=== PATIENT | male | born 1980 | race Caucasian/White ===

== ENCOUNTER 2017-06-25 17:57 | Inpatient (IN) | payer BC ==
[~2017-06-25] VITALS: Ht 177.8 cm; Wt 74.4 kg
[2017-06-25 19:08] VITALS: BP_SYST 134
[2017-06-25 19:16] LABS: BASOPHILS # (AUTO) 0.2 K/uL (0.0-0.2); BASOPHILS % (AUTO) 1.4 % (0.0-2.0); EOSINOPHILS % (AUTO) 0.1 % (0.0-4.0); HEMATOCRIT 39.6 % (36-54); HEMOGLOBIN 13.1 g/dL (14.0-18.0); LYMPHOCYTES # (AUTO) 1.5 K/uL (1.0-5.5); LYMPHOCYTES % (AUTO) 11.8 % (20.5-51.5); MEAN CORPUSCULAR HEMOGLOBIN 31 pg (27-31); MEAN CORPUSCULAR HGB CONC 33 % (32-36); MEAN CORPUSCULAR VOLUME 93 fL (79.0-98.0); MONOCYTES # (AUTO) 1.4 K/uL (0.0-1.0); MONOCYTES % (AUTO) 10.5 % (1.7-9.3); NEUTROPHILS # (AUTO) 9.9 K/uL (1.8-7.7); NEUTROPHILS % (AUTO) 76.2 % (40.0-70.0); PLATELET COUNT (AUTO) 272 K/uL (130-430); RED BLOOD CELL COUNT(AUTO) 4.26 MIL/uL (4.2-6.2); RED CELL DISTRIBUTION WIDTH 11.9 % (9.0-15.0)
[2017-06-25 19:30] LABS: CALCIUM 8.6 mg/dL (8.4-11.0); CREATININE 1.01 mg/dL (0.55-1.30); POTASSIUM 3.3 mmol/L (3.5-5.1)
[2017-06-25 19:34] LABS: ALBUMIN 3.2 g/dL (3.4-4.8)
[2017-06-25] MEDS ORDERED: NACL 0.9% 1,000 ML IV SCH (19:59)
[2017-06-25] MEDS ORDERED: CLINDAMYCIN 900 mg/50mL D5W 50 ML IV ONE (20:00)
[2017-06-25] MEDS ORDERED: POTASSIUM CHLORIDE 20 MEQ TAB.PRT.SR PO ONE (20:15)
[2017-06-25 22:05] VITALS: BP_SYST 131
[2017-06-25 22:31] VITALS: BP_SYST 131
[2017-06-25] MEDS ORDERED: ONDANSETRON HCL 4 MG/2 ML VIAL IVP PRN ×2 (23:15)
[2017-06-25] MEDS ORDERED: ACETAMINOPHEN 325 MG TABLET PO PRN (23:15)
[2017-06-25] MEDS ORDERED: HYDROcodone/ACETAMIN 5-325 MG TAB (NORCO/ VICODIN) PO PRN ×2 (23:30)
[2017-06-26] MEDS ORDERED: CLINDAMYCIN 600 mg/50mL D5W 50 ML IV ONE ×2 (00:27→06:04)
[2017-06-26] MEDS ORDERED: CEFAZOLIN 2 GM IVPB PREMIX 50 ML IV ONE ×2 (00:27→06:04)
[2017-06-26] MEDS: ceFAZolin SODIUM 2 GM in D5W 100 ML IV SCH ×3 (00:30→13:57)
[2017-06-26] MEDS: CLINDAMYCIN 600 mg/50mL D5W 50 ML IV SCH ×4 (01:30→17:35)
[2017-06-26 08:00] VITALS: BP_SYST 119
[2017-06-26] MEDS ORDERED: LACTOBACILLUS RHAMNOSUS GG 1 CAP CAPSULE PO SCH (09:00)
[2017-06-26 11:19] VITALS: BP_SYST 118
[2017-06-26 16:05] VITALS: BP_SYST 121
[2017-06-26] MEDS ORDERED: ENOXAPARIN SODIUM 40 MG/0.4 ML SYRINGE SUBCUT SCH ×2 (21:00→23:30)
== END 2017-06-26 22:47 | disposition short-term general hospital (02) | DRG 872 ==
LOC: SED 17:57 → SMU 21:44
PROVIDERS: ADMIT Internal Medicine; ATTEND Internal Medicine
DX: A41.9 Sepsis, unspecified organism (principal); L02.415 Cutaneous abscess of right lower limb; L03.115 Cellulitis of right lower limb; Z60.2 Problems related to living alone
CPT/HCPCS: 36415; 73564; 80053; 83605; 85025; 87040-TC; 87070-TC; 87186-TC; 93971; 96365; 99285; J0690; J3490; J7030; J7040; J7060

== ENCOUNTER 2017-08-05 11:03 | Inpatient (IN) | payer SELFPAY ==
[~2017-08-05] VITALS: Ht 172.7 cm; Wt 71.7 kg
[2017-08-05 11:08] VITALS: BP_SYST 144
[2017-08-05] MEDS ORDERED: cefTRIAXone 1 GM in D5W 50 ML IV ONE (11:30)
[2017-08-05] MEDS ORDERED: CLINDAMYCIN 600 mg/50mL D5W 50 ML IV ONE (11:30)
[2017-08-05] MEDS ORDERED: cefTRIAXone 1 GM VIAL ONE (11:38)
[2017-08-05 11:57] LABS: BASOPHILS % (AUTO) 0.6 % (0.0-2.0); EOSINOPHILS # (AUTO) 1.1 K/uL (0.0-0.4); EOSINOPHILS % (AUTO) 13.9 % (0.0-4.0); HEMATOCRIT 41.3 % (36-54); HEMOGLOBIN 13.7 g/dL (14.0-18.0); LYMPHOCYTES # (AUTO) 2.3 K/uL (1.0-5.5); LYMPHOCYTES % (AUTO) 29.4 % (20.5-51.5); MEAN CORPUSCULAR HEMOGLOBIN 31 pg (27-31); MEAN CORPUSCULAR HGB CONC 33 % (32-36); MEAN CORPUSCULAR VOLUME 93 fL (79.0-98.0); MONOCYTES # (AUTO) 0.5 K/uL (0.0-1.0); MONOCYTES % (AUTO) 6.4 % (1.7-9.3); NEUTROPHILS # (AUTO) 3.8 K/uL (1.8-7.7); NEUTROPHILS % (AUTO) 49.7 % (40.0-70.0); PLATELET COUNT (AUTO) 279 K/uL (130-430); RED BLOOD CELL COUNT(AUTO) 4.46 MIL/uL (4.2-6.2); RED CELL DISTRIBUTION WIDTH 13.1 % (9.0-15.0); WHITE BLOOD COUNT (AUTO) 7.8 K/uL (4.8-10.8)
[2017-08-05 12:02] LABS: CALCIUM 9.1 mg/dL (8.4-11.0); CREATININE 1.2 mg/dL (0.55-1.30); POTASSIUM 4.5 mmol/L (3.5-5.1)
[2017-08-05 12:05] LABS: PROTHROMBIN TIME 9.9 SECS (9.5-12.5)
[2017-08-05 12:07] LABS: C-REACTIVE PROTEIN QUANT 0.7 mg/dL (0-0.5); TOTAL BILIRUBIN 0.2 mg/dL (0.0-1.0)
[2017-08-05 14:17] VITALS: BP_SYST 117
[2017-08-05] MEDS ORDERED: FLU VACC QS 2017-18(36MOS+)/PF 0.5 ML/SYR SYRINGE I.M. PRN (14:45)
[2017-08-05] MEDS ORDERED: ACETAMINOPHEN 325 MG TABLET PO PRN (15:00)
[2017-08-05] MEDS ORDERED: HYDROcodone/ACETAMIN 5-325 MG TAB (NORCO/ VICODIN) PO PRN (17:30)
[2017-08-05] MEDS: POTASSIUM CHLORIDE 10 MEQ in NACL 0.9% 1,000 ML IV SCH (18:28)
[2017-08-05] MEDS: CEFAZOLIN 2 GM IVPB PREMIX 50 ML IV SCH ×2 (18:32→21:27)
[2017-08-05] MEDS: CLINDAMYCIN 600 mg/50mL D5W 50 ML IV SCH ×2 (18:59→23:52)
[2017-08-05 20:20] VITALS: BP_SYST 126
[2017-08-05 23:18] VITALS: BP_SYST 128
[2017-08-06] MEDS: CLINDAMYCIN 600 mg/50mL D5W 50 ML IV SCH (05:46)
[2017-08-06 06:36] VITALS: BP_SYST 122
[2017-08-06] MEDS: POTASSIUM CHLORIDE 10 MEQ in NACL 0.9% 1,000 ML IV SCH (06:43)
[2017-08-06] MEDS: CEFAZOLIN 2 GM IVPB PREMIX 50 ML IV SCH ×2 (06:45→06:54)
[2017-08-06 06:55] LABS: BASOPHILS % (AUTO) 0.4 % (0.0-2.0); EOSINOPHILS # (AUTO) 1.3 K/uL (0.0-0.4); EOSINOPHILS % (AUTO) 17.4 % (0.0-4.0); HEMOGLOBIN 14.3 g/dL (14.0-18.0); LYMPHOCYTES # (AUTO) 3.1 K/uL (1.0-5.5); LYMPHOCYTES % (AUTO) 42.9 % (20.5-51.5); MEAN CORPUSCULAR HEMOGLOBIN 32 pg (27-31); MEAN CORPUSCULAR HGB CONC 34 % (32-36); MEAN CORPUSCULAR VOLUME 93 fL (79.0-98.0); MONOCYTES # (AUTO) 0.6 K/uL (0.0-1.0); MONOCYTES % (AUTO) 8.9 % (1.7-9.3); NEUTROPHILS # (AUTO) 2.2 K/uL (1.8-7.7); NEUTROPHILS % (AUTO) 30.4 % (40.0-70.0); PLATELET COUNT (AUTO) 285 K/uL (130-430); RED BLOOD CELL COUNT(AUTO) 4.53 MIL/uL (4.2-6.2); RED CELL DISTRIBUTION WIDTH 13.1 % (9.0-15.0); WHITE BLOOD COUNT (AUTO) 7.2 K/uL (4.8-10.8)
[2017-08-06] MEDS ORDERED: DIPHENHYDRAMINE HCL 50 MG CAPSULE PO ONE (07:00)
[2017-08-06 07:04] LABS: ALBUMIN 2.5 g/dL (3.4-4.8); CALCIUM 8.6 mg/dL (8.4-11.0); CREATININE 0.79 mg/dL (0.55-1.30); POTASSIUM 4.2 mmol/L (3.5-5.1); TOTAL BILIRUBIN 0.1 mg/dL (0.0-1.0)
[2017-08-06 08:00] VITALS: BP_SYST 124
[2017-08-06] MEDS: FAMOTIDINE 20 MG TABLET PO SCH (09:00)
[2017-08-06 12:00] VITALS: BP_SYST 115
[2017-08-06] MEDS: LINEZOLID 300 ML IV SCH ×2 (12:05→21:52)
[2017-08-06 16:00] VITALS: BP_SYST 124
[2017-08-06 20:27] VITALS: BP_SYST 116
[2017-08-06] MEDS: DIPHENHYDRAMINE HCL 25 MG CAPSULE PO PRN (22:26)
[2017-08-07 01:55] VITALS: BP_SYST 114
[2017-08-07 08:00] VITALS: BP_SYST 124
[2017-08-07] MEDS: FAMOTIDINE 20 MG TABLET PO SCH (08:48)
[2017-08-07] MEDS: LINEZOLID 300 ML IV SCH (08:49)
[2017-08-07] MEDS: DIPHENHYDRAMINE HCL 25 MG CAPSULE PO PRN (08:50)
[2017-08-07 12:36] VITALS: BP_SYST 128
[2017-08-07 15:03] VITALS: BP_SYST 128
[2017-08-07] MEDS ORDERED: DOXY100T2 PO (15:03)
== END 2017-08-07 15:50 | disposition home or self-care (01) | DRG 603 ==
LOC: SED 11:03 → SMU 13:44
PROVIDERS: ADMIT Internal Medicine; ATTEND Internal Medicine
DX: L03.115 Cellulitis of right lower limb (principal); E44.0 Moderate protein-calorie malnutrition; B18.1 Chronic viral hepatitis B without delta-agent; F12.90 Cannabis use, unspecified, uncomplicated; R73.9 Hyperglycemia, unspecified; I89.0 Lymphedema, not elsewhere classified; J45.909 Unspecified asthma, uncomplicated; Z88.1 Allergy status to other antibiotic agents; Z68.24 Body mass index [BMI] 24.0-24.9, adult
CPT/HCPCS: 36415; 73560-TC; 80053; 83605; 85025; 85610-TC; 85730-TC; 86140; 87040-TC; 93971; 96365; 96367; 99285; J0690; J0696; J2020; J3480; J3490; J7030; J7060; Q0163